=== PATIENT | male | born 1965 | race Two or more races ===

== ENCOUNTER → 2016-07-16 | Emergency (ER) | payer BC, MEDICAID ==
[~2016-07-16] VITALS: Ht 165.1 cm; Wt 74.8 kg
[~2016-07-16] MED LIST: IV NS 0.9% 1,000 ML BAG IV ONE; IV NS 0.9% 1,000 ML ONE; IV SET PRIMARY 1 EA INFUS.SET MC ONE; LORAZEPAM INJ 2 MG/ML VIAL IVP ONE; LORAZEPAM INJ 2 MG/ML VIAL ONE
--- NOTE | 2016-07-16 18:37 | NUR ---
Holger doty in [facility] - 07/16/16 at [address] carrera at [facility] for
[2016-07-16 18:49] LABS: BASOPHILS % (AUTO) 0.5 % (0.0-2.0); EOSINOPHILS % (AUTO) 0.2 % (0.0-6.0); HEMATOCRIT 42 % (39-51); HEMOGLOBIN 14.1 g/dL (13.5-17.5); LYMPHOCYTES # (AUTO) 1.9 /CMM (0.8-4.8); LYMPHOCYTES % (AUTO) 20.5 % (20.0-44.0); MEAN CORPUSCULAR HEMOGLOBIN 30 PG (26.0-33.0); MEAN CORPUSCULAR HGB CONC 34 g/dl (31.0-36.0); MEAN CORPUSCULAR VOLUME 91 fL (80-96); MONOCYTES # (AUTO) 0.5 /CMM (0.1-1.30); NEUTROPHILS # (AUTO) 6.9 /CMM (1.8-8.9); NEUTROPHILS % (AUTO) 73.8 % (43.0-81.0); RED BLOOD CELL COUNT(AUTO) 4.62 MIL/uL (4.5-6.0); WHITE BLOOD COUNT (AUTO) 9.3 K/uL (4.3-11.0)
--- NOTE | 2016-07-16 18:51 | NUR ---
pt xiomy from home to er bed 15. exhibiting psychosis s/p meth use. denies pain or any discomfort. verbally responsive. placed on monitor. vss. awaiting md garcia.
--- NOTE | 2016-07-16 18:55 | NUR ---
dr carrera at bedside for eval.
[2016-07-16 18:56] LABS: CALCIUM, SERUM 9.1 mg/dL (8.5-10.1); CARBON DIOXIDE 24 mmol/L (21-32); CHLORIDE 104 mmol/L (98-107); GFR 79 mL/min (>60); GLUCOSE 108 mg/dL (74-106); SODIUM SERUM 139 mmol/L (136-145); UREA NITROGEN, BLOOD 18 mg/dL (7-18)
[2016-07-16 18:58] LABS: PLATELET COUNT (AUTO) 20 /CMM (150-450)
[2016-07-16 19:02] LABS: ALANINE AMINOTRANSFERASE 33 U/L (12-78); ALBUMIN 3.9 g/dL (3.4-5.0); ALCOHOL, BLOOD < 3 mg/dL (0-0); ALKALINE PHOSPHATASE 73 U/L (46-116); ASPARTATE AMINOTRANSFERASE 28 U/L (15-37); BILIRUBIN,DIRECT 0.3 mg/dL (0.0-0.2); BILIRUBIN,TOTAL 1.6 mg/dL (0.2-1.0); TOTAL PROTEIN, SERUM 8.1 g/dL (6.4-8.2)
[2016-07-16 19:04] LABS: TROPONIN I < 0.017 ng/mL (0.00-0.056)
[2016-07-16 19:15] LABS: THYROID STIMULATING HORMONE 0.266 uIU/mL (0.358-3.74)
[2016-07-16 19:26] LABS: ACETAMINOPHEN < 2 ug/ml (10-30); SALICYLATE < 2.8 mg/dL (2.8-20.0)
[2016-07-16 19:36] LABS: LYMPHOCYTES % (MANUAL) 33 % (16-48); MONOCYTES % (MANUAL) 2 % (0-11.0); NEUTROPHILS % (MANUAL) 65 (42-76)
[2016-07-16 19:39] LABS: PLATELET ESTIMATE DECREASED
--- NOTE | 2016-07-16 19:56 | NUR ---
pt to radiology for head ct scan via [facility].
[2016-07-16 19:59] LABS: CANNABINOID, URINE NEGATIVE (NEGATIVE); PHENCYCLIDINE SCREEN,URINE NEGATIVE (NEGATIVE)
[2016-07-16 21:23] VITALS: BP 133/77
--- NOTE | 2016-07-16 21:33 | NUR ---
Patient discharged to home in stable condition. Written and verbal after care instructions given. Patient verbalizes understanding of instruction.IV removed. Catheter intact and site benign. Pressure and 4x4 applied to site. No bleeding noted.
== END | disposition home or self-care (01) ==
LOC: ER 18:30
DX: R41.82 Altered mental status, unspecified (principal); T43.621A Poisoning by amphetamines, accidental (unintentional), initial encounter; I45.10 Unspecified right bundle-branch block; I10 Essential (primary) hypertension; F29 Unspecified psychosis not due to a substance or known physiological condition; D69.6 Thrombocytopenia, unspecified; F17.210 Nicotine dependence, cigarettes, uncomplicated
CPT/HCPCS: 36415; 51702; 70450; 80048; 80076; 80305; 80329; 84443; 84484; 85025; 93005; 99285; A4606; G0480 ×2; J2060; J7030; G6039-TC; Z7610

== ENCOUNTER 2016-07-20 19:03 | Emergency (ER) | payer BC, MEDICAID ==
[~2016-07-20] VITALS: Ht 160 cm; Wt 81.6 kg
--- NOTE | 2016-07-20 19:25 | NUR ---
PT BIBRA FROM HOME TO ER BED 11. HERE FOR ANXIETY POST METH USE. SEEN HERE FEW DAYS AGO FOR SAME REASON. PT IS VERBALLY RESPONSIVE. STABLE COND. AWAITIG MD SAMS.
[2016-07-20] MEDS ORDERED: LORAZEPAM INJ 2 MG/ML VIAL IM ONE (20:00)
--- NOTE | 2016-07-20 20:01 | NUR ---
SHAWNA MARTINEZ AT BEDSIDE FOR EVAL.
--- NOTE | 2016-07-20 20:22 | NUR ---
GERA RN AT BEDSIDE FOR PSYCH EVAL.
--- NOTE | 2016-07-20 21:04 | NUR ---
Patient discharged to home in stable condition. Written and verbal after care instructions given. Patient verbalizes understanding of instruction.
[2016-07-20 21:06] VITALS: BP 136/84
== END 2016-07-20 21:08 | disposition home or self-care (01) ==
LOC: ER 19:05
DX: F15.10 Other stimulant abuse, uncomplicated (principal); F17.200 Nicotine dependence, unspecified, uncomplicated; F41.9 Anxiety disorder, unspecified; I11.9 Hypertensive heart disease without heart failure; I50.9 Heart failure, unspecified; F98.8 Other specified behavioral and emotional disorders with onset usually occurring in childhood and adolescence; Z88.8 Allergy status to other drugs, medicaments and biological substances
CPT/HCPCS: 99283; A4606; Z7610

== ENCOUNTER 2016-07-27 02:11 | Emergency (ER) | payer BC, MEDICAID | END 2016-07-27 02:38 | disposition left against medical advice (07) | LOC: ER 02:11 | DX: M79.671 Pain in right foot (principal); Z53.21 Procedure and treatment not carried out due to patient leaving prior to being seen by health care provider | CPT/HCPCS: A4606; Z7610 ==

== ENCOUNTER 2017-03-13 19:25 | Emergency (ER) | payer BC, MEDICAID ==
[~2017-03-13] VITALS: Ht 160 cm; Wt 77.1 kg
[2017-03-13 19:38] VITALS: BP 147/80
[2017-03-13] MEDS ORDERED: LIDOCAINE 1%-EPI 1:100,000 50 ML VIAL IJ ONE (20:30)
[2017-03-13] MEDS: LIDOCAINE 1%-EPI 1:100,000 20 ML VIAL TP ONE (21:08)
[2017-03-13] MEDS ORDERED: CLINDAMYCIN HCL 150 MG CAPSULE PO ONE (21:14)
[2017-03-13] MEDS: CLINDAMYCIN HCL 150 MG CAPSULE PO ONE (21:18)
--- NOTE | 2017-03-13 21:34 | NUR ---
INCISION AND DRAINAGE DONE. PT TOLERATED PROCEDURE WELL. WOUND CARE PROVIDED. PT D/C HOME IN STABLE CONDITION.
== END 2017-03-13 21:36 | disposition home or self-care (01) ==
LOC: ER 19:25
DX: L02.413 Cutaneous abscess of right upper limb (principal); K04.7 Periapical abscess without sinus; F17.210 Nicotine dependence, cigarettes, uncomplicated; I11.0 Hypertensive heart disease with heart failure; I50.9 Heart failure, unspecified; F41.9 Anxiety disorder, unspecified; Z88.8 Allergy status to other drugs, medicaments and biological substances
CPT/HCPCS: A4606; A6402; J3490; Z7610

== ENCOUNTER 2017-04-03 11:59 | Emergency (ER) | payer BC, MEDICAID ==
[~2017-04-03] VITALS: Ht 160 cm; Wt 77.1 kg
[2017-04-03 12:29] VITALS: BP 132/84
== END 2017-04-03 12:31 | disposition home or self-care (01) ==
LOC: ER 12:01
DX: J06.9 Acute upper respiratory infection, unspecified (principal); F41.9 Anxiety disorder, unspecified; I10 Essential (primary) hypertension; F17.200 Nicotine dependence, unspecified, uncomplicated; F15.10 Other stimulant abuse, uncomplicated; F12.10 Cannabis abuse, uncomplicated; Z88.8 Allergy status to other drugs, medicaments and biological substances
CPT/HCPCS: 99283; A4606; Z7610

== ENCOUNTER 2017-08-03 00:58 | Emergency (ER) | payer BC, MEDICAID ==
[~2017-08-03] VITALS: Ht 160 cm; Wt 74.8 kg
[2017-08-03 01:27] VITALS: BP 145/99
== END 2017-08-03 03:01 | disposition home or self-care (01) ==
LOC: ER 00:58
DX: S60.811A Abrasion of right wrist, initial encounter (principal); I10 Essential (primary) hypertension; F41.9 Anxiety disorder, unspecified; F98.8 Other specified behavioral and emotional disorders with onset usually occurring in childhood and adolescence; F17.200 Nicotine dependence, unspecified, uncomplicated; Z88.8 Allergy status to other drugs, medicaments and biological substances; Z60.2 Problems related to living alone; W22.8XXA Striking against or struck by other objects, initial encounter; Y93.89 Activity, other specified; Y92.89 Other specified places as the place of occurrence of the external cause; Y99.8 Other external cause status
CPT/HCPCS: A4606; Z7502; Z7610